=== PATIENT | male | born 1990 | race Asian ===

== ENCOUNTER 2021-06-26 10:50 | Emergency (ER) | payer MEDICAID, OTHER ==
--- NOTE | 2021-06-26 11:19 | EDM.PDOC ---
ED HPI GENERAL MEDICAL PROBLEM - General Chief Complaint: Laceration Stated Complaint: CUT ON LEFT HAND Time Seen by Provider: 06/26/21 10:55 Source of Information: Reports: Patient History Limitations: Reports: No Limitations - History of Present Illness INITIAL COMMENTS - FREE TEXT/NARRATIVE: Urgency department with complaint of a laceration to the left hand. Patient states that he was cleaning a mug and it ended up breaking causing a laceration to his left hand. Patient states he was able to control the bleeding prior to arrival with manual pressure. Patient states he does not have any range of motion or CMS concerns and is able to move all extremities without difficulty. Patient states that he was more scared and wanted his hand evaluated to ensure there is nothing further wrong. He states that he was able to clean it at home and does not see any glass shards in the wound. Onset: Sudden Location: Reports: Upper Extremity, Left Quality: Reports: Other Severity: Moderate Improves with: Reports: None Worsens with: Reports: None Context: Reports: Activity Associated Symptoms: Reports: No Other Symptoms ED ROS GENERAL - Review of Systems Review Of Systems: Comprehensive ROS is negative, except as noted in HPI. Constitutional: Reports: No Symptoms HEENT: Reports: No Symptoms Respiratory: Reports: No Symptoms Cardiovascular: Reports: No Symptoms Endocrine: Reports: No Symptoms GI/Abdominal: Reports: No Symptoms : Reports: No Symptoms Musculoskeletal: Reports: No Symptoms Skin: Reports: No Symptoms Neurological: Reports: No Symptoms Psychiatric: Reports: No Symptoms Hematologic/Lymphatic: Reports: No Symptoms Immunologic: Reports: No Symptoms ED EXAM, SKIN/RASH Exam: See Below Exam Limited By: No Limitations General Appearance: Alert, WD/WN, No Apparent Distress Nose: Normal Inspection, Normal Mucosa, No Blood Throat/Mouth: Normal Inspection, Normal Lips, Normal Teeth, Normal Gums, Normal Oropharynx, Normal Voice, No Airway Compromise Head: Atraumatic, Normocephalic Neck: Normal Inspection, Supple, Non-Tender, Full Range of Motion Respiratory/Chest: No Respiratory Distress, No Accessory Muscle Use, Chest Non- Tender Cardiovascular: Normal Peripheral Pulses, Regular Rate, Rhythm Extremities: Normal Inspection, Normal Range of Motion, Non-Tender, No Pedal Edema, Normal Capillary Refill Neurological: Alert, Oriented, CN II-XII Intact, Normal Cognition, Normal Gait, No Motor/Sensory Deficits Psychiatric: Normal Affect, Normal Mood Skin: Warm, Dry, Wound/Incision Location, Skin: Upper Extremity, Left Characteristics: Other Lymphatic: No Adenopathy ED SKIN PROCEDURES - Laceration/Wound Repair Left Proximal Ventral Hand Appearance: Superficial, Linear Distal NVT: Neuro & Vascular Intact, No Tendon Injury Exploration/Debridement/Repair: Wound Explored, In a Bloodless Field, No Foreign Material Found Closed with: Dermabond, Steri-Strips Lac/Wound length In cm: 2 Course - Vital Signs Last Recorded V/S: Last Vital Signs Temp 36.6 C 06/26/21 11:10 Pulse 89 06/26/21 11:10 Resp 18 06/26/21 11:10 BP 152/106 H 06/26/21 11:10 Pulse Ox 97 06/26/21 11:10 Departure - Departure Time of Disposition: 11:30 Disposition: Home, Self-Care 01 Condition: Good Clinical Impression: Laceration - Discharge Information *PRESCRIPTION DRUG MONITORING PROGRAM REVIEWED*: Not Applicable *COPY OF PRESCRIPTION DRUG MONITORING REPORT IN PATIENT ANTONY: Not Applicable Instructions: Sutures, Campos, or Adhesive Wound Closure, [id number] Forms: ED Department Discharge Additional Instructions: 1. Rest 2. Keep the area clean and dry 3. Can use tylenol and ibuprofen as needed for pain and discomfort 4. Diet as tolerated 5. Activity as tolerated 6. Elevated the injured area above the level of the heart to decrease swelling and discomfort if applicable 7. Can use ice 3-4 times a day at 20-minute intervals to help with any swelling and discomfort 8. Follow-up with your primary care provider symptoms continue or to progress 9. Discharge information has been provided regarding your injury and wound care has been provided 10. Avoid an public pools or hot tubes until wound is healed. Sepsis Event Note (ED) - Focused Exam Vital Signs: Vital Signs Temp Pulse Resp BP Pulse Ox 06/26/21 11:10 36.6 C 89 18 152/106 H 97 - Assessment/Plan Assessment:: 1. laceration Plan: 1. Wound cleansing completed 2. Laceration repair completed- steri strip and durabond 3. Tdap vaccine history completed 4. Education regarding wound care, dressing changes, OTC medications, activity, diet, follow up care and when to seek care if warranted provided 5. Patient is to return to the clinic in 10 days to have sutures site evaluated and removed 6. Patient was encouraged to call or return if any questions or concerns arise.
== END 2021-06-26 11:26 | disposition home or self-care (01) ==
LOC: VM.ED 10:50
DX: S61.412A Laceration without foreign body of left hand, initial encounter (principal); W26.8XXA Contact with other sharp object(s), not elsewhere classified, initial encounter
CPT/HCPCS: 12001; 99282-25; 99283

== ENCOUNTER 2021-09-14 01:01 | Emergency (ER) | payer SELFPAY ==
[2021-09-14 01:52] LABS: CHLORIDE,CL 103 mmol/L (98-107); SODIUM,NA 139 mmol/L (136-145)
[2021-09-14 01:53] LABS: ANION GAP 13.2 mmol/L (5-15)
[2021-09-14] MEDS ORDERED: Potassium Chloride 20 MEQ Tab.ER PO ONE (01:57)
== END 2021-09-14 02:34 | disposition home or self-care (01) ==
LOC: VM.ED 01:01
DX: R07.9 Chest pain, unspecified (principal); J06.9 Acute upper respiratory infection, unspecified; E87.6 Hypokalemia; F17.210 Nicotine dependence, cigarettes, uncomplicated
CPT/HCPCS: 36415; 71046; 80053; 80307; 84484; 85025; 85379; 93005; 93010; 99284; 99284-25; A9270-GY

== ENCOUNTER 2022-07-29 16:34 | Emergency (ER) | payer BC ==
[2022-07-29] MEDS ORDERED: Sodium Chloride 0.9% 10 ML Syringe FLUSH PRN (17:15)
[2022-07-29] MEDS ORDERED: HYDROmorphone 0.5 MG/0.5 ML Syringe IV ONE ×2 (17:17→19:55)
[2022-07-29] MEDS ORDERED: Ondansetron 4 MG/2 ML SDV IV ONE (17:17)
[2022-07-29] MEDS ORDERED: Lactated Ringers 1,000 ML IV ONE (17:17)
[2022-07-29] MEDS ORDERED: Iopamidol 612 MG/ML 100 ML Bottle IVPUSH ONE (17:39)
[2022-07-29 17:45] LABS: CHLORIDE,CL 100 mmol/L (98-107); SODIUM,NA 136 mmol/L (136-145)
[2022-07-29 18:16] LABS: ACETAMINOPHEN 0 ug/ml (10-30); ANION GAP 16.4 mmol/L (5-15); ESTIMATED GFR 93 mL/min (>=60)
[2022-07-29 18:22] LABS: CORONAVIRUS COVID-19 NAA NEGATIVE (NEGATIVE); RESPIRATORY SYNCYTIAL VIR NAA NEGATIVE (NEGATIVE)
[2022-07-29] MEDS ORDERED: GI Cocktail Oral Solution 30 ML PO ONE (18:25)
[2022-07-29] MEDS ORDERED: Aspirin 81 MG Tab.Chew PO ONE (19:25)
[2022-07-29] MEDS ORDERED: Acetaminophen 500 MG Tab PO ONE (19:28)
[2022-07-29] MEDS ORDERED: Polyethylene Glycol 3350 Powder 17 GM Packet PO ONE (21:20)
[2022-07-29] MEDS ORDERED: Bisacodyl 5 MG Tab PO ONE (21:20)
[2022-07-29] MEDS ORDERED: Take Home: Acetaminophen/HYDROcodone 325-5 MG, 5 Tab Pack PO ONE (21:30)
== END 2022-07-29 21:45 | disposition home or self-care (01) ==
LOC: VM.ED 16:34
DX: R10.10 Upper abdominal pain, unspecified (principal); K59.00 Constipation, unspecified; E78.00 Pure hypercholesterolemia, unspecified; Z79.899 Other long term (current) drug therapy; Z90.49 Acquired absence of other specified parts of digestive tract; Z20.822 Contact with and (suspected) exposure to COVID-19
CPT/HCPCS: 0241U; 36415; 71046; 74178; 80053; 80143; 80307; 81001; 83605; 83690; 84145; 84478; 84484; 85025; 86140; 87040; 93005; 96361; 96374; 96375; 96376; 99284; 99284-25; A9270-GY; J1170; J2405; J7120; Q9967